=== PATIENT | female | born 1990 | race Two or more races ===

== ENCOUNTER 2022-12-02 18:37 | Emergency (ER) | payer SELFPAY ==
[~2022-12-02] VITALS: Ht 160 cm; Wt 70.0 kg
[2022-12-02] MEDS ORDERED: HALOPERIDOL LACTATE 5 MG/ML INJ VIAL IM ONE (19:15)
[2022-12-02] MEDS ORDERED: LORazepam 2MG/ML-1ML VIAL IM ONE (19:15)
[2022-12-02] MEDS ORDERED: SODIUM CHLORIDE 0.9% 1,000 ML IV ONE (19:15)
[2022-12-02] MEDS ORDERED: diphenhdrAMINE HCL 50 MG/1 ML VL IM ONE (19:15)
[2022-12-02 22:10] VITALS: BP 126/88
== END 2022-12-02 23:15 ==
LOC: EDBD 18:37 → ER 18:41
DX: R45.1 Restlessness and agitation (principal); Z53.29 Procedure and treatment not carried out because of patient's decision for other reasons
CPT/HCPCS: 99283; J1200; J1630; J2060